=== PATIENT | female | born 1980 | race Caucasian/White ===

== ENCOUNTER 2016-07-29 21:13 | Emergency (ER) | payer MEDICAID ==
[~2016-07-29 21:13] MED LIST: IBUPROFEN IB200 MG PO; NUPRIN200 M PO; PROMETHAZINE-C118 ML PO; ZITHROMAX250 M1 PO
[2016-07-29] MEDS ORDERED: BACTRIM DS TAB1 EAC2 PO (21:23)
== END 2016-07-29 22:29 ==
LOC: EDMED 21:13
DX: L23.9 Allergic contact dermatitis, unspecified cause (principal); Z98.890 Other specified postprocedural states